=== PATIENT | female | born 1975 | race African-American/Black ===

== ENCOUNTER 2021-07-06 22:48 | Emergency (ER) | payer OTHER ==
[2021-07-06 23:01] VITALS: BP 123/78; PULSE 86; TEMP 98.3; BMI 21.4
[2021-07-07 00:48] LABS: HIV INTERPRETATION NEGATIVE (NEGATIVE)
== END 2021-07-07 00:56 | disposition home or self-care (01) ==
LOC: JER 22:48
DX: S61.439A Puncture wound without foreign body of unspecified hand, initial encounter (principal); Z77.21 Contact with and (suspected) exposure to potentially hazardous body fluids; W46.1XXA Contact with contaminated hypodermic needle, initial encounter
CPT/HCPCS: 36415; 86704; 86706; 86803; 87340; 87389; 87517; 99283-25

== ENCOUNTER 2023-05-20 18:57 | Emergency (ER) | payer SELFPAY ==
[2023-05-20 19:04] VITALS: BP 112/74; PULSE 91; RESP 18; TEMP 98.5; BMI 21.8
== END 2023-05-20 20:36 | disposition home or self-care (01) ==
LOC: JERFT 18:57 → JER 18:57 → JERFT 20:36
DX: U07.1 COVID-19 (principal)
CPT/HCPCS: 0241U-QW; 99283-25

== ENCOUNTER 2024-05-04 05:54 | Emergency (ER) | payer BC ==
[2024-05-04 06:09] VITALS: BP 119/75; PULSE 75; RESP 16; TEMP 97.9; BMI 21.4
[2024-05-04] MEDS ORDERED: IBUPROFEN 400 MG TABLET (FP) PO ONE (06:49)
[2024-05-04] MEDS: IBUPROFEN 400 MG TABLET (FP) PO ONE (06:52)
== END 2024-05-04 08:29 | disposition home or self-care (01) ==
LOC: JER 05:54
DX: R05.9 Cough, unspecified (principal); R53.83 Other fatigue; Z20.822 Contact with and (suspected) exposure to COVID-19
CPT/HCPCS: 0241U-QW; 71046-TC-FY; 99284-25

== ENCOUNTER 2024-10-16 18:50 | Emergency (ER) | payer BC ==
[2024-10-16 18:58] VITALS: BP 130/79; PULSE 80; RESP 18; TEMP 98.4; BMI 21.4
[2024-10-16] MEDS ORDERED: AZITHROMYCIN 500 MG TABLET ONE (20:49)
[2024-10-16] MEDS: AZITHROMYCIN 250 MG TABLET PO ONE (20:49)
== END 2024-10-16 20:54 | disposition home or self-care (01) ==
LOC: JER 18:50
DX: J01.90 Acute sinusitis, unspecified (principal); J02.9 Acute pharyngitis, unspecified; R09.82 Postnasal drip; R09.81 Nasal congestion; R05.9 Cough, unspecified; Z20.822 Contact with and (suspected) exposure to COVID-19
CPT/HCPCS: 0241U-QW; 71046-TC-FY; 99284-25